=== PATIENT | male | born 1955 | race Caucasian/White ===

== ENCOUNTER 2024-03-24 11:01 | Outpatient (CLI) | payer MEDICARE, SELFPAY ==
--- NOTE | 2024-03-24 11:12 | USCV_ITS ---
Obinna Rodriguez Age: 68 Gender: M : 1955 Exam Date: 03/24/2024 11:34 Ordering Phys: Rusty Posey MD Technologist: CATRACHO Exam Location: [facility] – [place] Indication: HYPOTENSION BP: 143 / 75 HR: 61 Rhythm: Sinus Technical Quality: Adequate MEASUREMENTS (Male / Female) Normal Values 2D ECHO LV Diastolic Diameter PLAX 5.2 cm 4.2 - 5.9 / 3.9 - 5.3 cm IVS Diastolic Thickness 1.3 cm 0.6 - 1.0 / 0.6 - 0.9 cm IVS Systolic Thickness 2.4 cm LVPW Diastolic Thickness 1.8 cm 0.6 - 1.0 / 0.6 - 0.9 cm LVPW Systolic Thickness 2.5 cm LVOT Diameter 2.0 cm LV Ejection Fraction 2D Teich 68.3 % LV Ejection Fraction MOD 4C 60.4 % LV Ejection Fraction MOD 2C 64.1 % LV Ejection Fraction 2C AL 66.5 % LA Diameter 4.2 cm RA Systolic Volume 4C AL 23.0 ml RA Systolic Volume 4C MOD 21.2 ml LA Sys Volume AL 39.1 cm cubed LA Sys Volume Index AL 13.2 cm cubed/m squared Aorta at Sinotubular Diameter 2.1 cm IVC Diameter 1.6 cm M-MODE LA Ao Ratio MM 1.2 AV Cusp Separation MM 1.9 cm DOPPLER AV Peak Velocity 139.0 cm/s LVOT Peak Velocity 103.0 cm/s AV Area Cont Eq vti 2.5 cm squared AV Area Cont Eq pk 2.4 cm squared MV Peak Velocity 82.0 cm/s MV Area PHT 2.4 cm squared Mitral E to A Ratio 1.1 TR Peak Velocity 118.0 cm/s TR Peak Gradient 5.6 mmHg TR Mean Velocity 100.0 cm/s TR Mean Gradient 4.2 mmHg TR Velocity Time Integral 32.9 cm TV Peak E Velocity 53.0 cm/s PV Peak Velocity 98.0 cm/s RV Ejection Time 0.3 s FINDINGS Left Ventricle Normal left ventricular size, systolic function and wall thickness, with no regional wall motion abnormalities. Left ventricular ejection fraction is estimated at 55 %. Grade I/IV diastolic dysfunction (abnormal relaxation filling pattern), normal to mildly elevated filling pressures. Right Ventricle The right ventricle is normal in size and function. Right Atrium The right atrium is normal in size. Left Atrium The left atrium is normal in size. Mitral Valve Structurally normal mitral valve. Mild mitral annular calcification. No mitral valve stenosis. Trace mitral valve regurgitation. Aortic Valve Trace aortic valve regurgitation. Aortic valve sclerosis. No aortic valve stenosis. Tricuspid Valve Structurally normal tricuspid valve without significant stenosis or regurgitation. Pulmonic Valve Structurally normal pulmonic valve without significant stenosis. There is no pulmonic regurgitation. Pericardium Normal pericardium without effusion. Aorta Normal ascending aorta dimension. IVC The inferior vena cava appears normal. CONCLUSIONS Normal left ventricular size, systolic function and wall thickness, with no regional wall motion abnormalities. Left ventricular ejection fraction is estimated at 55 %. Grade I/IV diastolic dysfunction (abnormal relaxation filling pattern), normal to mildly elevated filling pressures. Structurally normal mitral valve. Mild mitral annular calcification. No mitral valve stenosis. Trace mitral valve regurgitation. There is no pericardial effusion. Right atrial pressure is around 5 mm of mercury. Catina Lou MD (Electronically Signed) Final Date: 25 March 2024 14:09 S
== END 2024-03-24 11:02 | disposition home or self-care (01) ==
LOC: RAD 11:06
PROVIDERS: Family Provider Family Medicine; Visit Provider Family Medicine
DX: I95.1 Orthostatic hypotension (principal); I34.81 Nonrheumatic mitral (valve) annulus calcification
CPT/HCPCS: 93306

== ENCOUNTER 2024-05-02 12:33 | Outpatient (CLI) | payer MEDICARE, SELFPAY ==
[2024-05-02 12:43] VITALS: BMI 41.8
--- NOTE | 2024-05-02 12:52 | ECG_ITS ---
[facility] Test Date: 2024-05-02 Pat Name: Obinna Rodriguez Department: Room: Gender: Male [employer]: : 1955 Requested By: Rusty Tovar Order Number: [id number] Mounika MD: Maddie Muñoz M.D. Interpretive Statements Lung unchanged pre/post procedure; Intraprocedure shortess of breath; Symptoms resoled by discharge PROCEDURE: At the baseline, the patient's blood pressure was 140/90 with a heart rate of 98. The baseline electrocardiogram showed normal sinus rhythm with normal ST-Ts. Poor R wave progression. The patient exercised for 5 minutes and 37 seconds on a standard Uriel protocol. Patient attained a maximum heart rate of 157 beats per minute(104% of the maximum predicted heart rate) with a blood pressure at the peak exercise of 163/70 mm Hg. The EKG at the peak exercise revealed no significant changes. Patient did not have any chest pain or any significant cardiac arrhythmias with the exercise During the recovery phase, there were no new changes. Blood pressure at the end of the recovery phase was 161/66 mm Hg with a heart rate of 100 per minute. CONCLUSION: 1. Normal EKG response to treadmill exercise 2. No exercise-induced chest pain or cardiac arrhythmia 3. Slightly exercise tolerance, attained a maximum of 7.0 METs Electronically Signed On 05-09-2024 07:04:58 NUT FORMER by Maddie Muñoz M.D. [email or web address]
[2024-05-02 13:19] VITALS: BP 154/82; PULSE 99
== END 2024-05-02 12:34 | disposition home or self-care (01) ==
LOC: CDL 12:33
PROVIDERS: PCP Family Medicine; Visit Provider Family Medicine
DX: R07.89 Other chest pain (principal)
CPT/HCPCS: 93017

== ENCOUNTER → 2024-05-13 13:34 | Outpatient (BNVA) | payer MEDICARE, SELFPAY | PROVIDERS: PCP Family Medicine; Referring Provider Family Medicine; Visit Provider Internal Medicine | DX: R07.9 Chest pain, unspecified (principal) | CPT/HCPCS: 93005; 99204 ==

== ENCOUNTER → 2024-05-16 12:42 | Outpatient (BNVA) | payer MEDICARE, SELFPAY | PROVIDERS: PCP Family Medicine; Visit Provider Internal Medicine | DX: R07.9 Chest pain, unspecified (principal); R00.2 Palpitations; I49.1 Atrial premature depolarization; I49.3 Ventricular premature depolarization; R00.1 Bradycardia, unspecified | CPT/HCPCS: 93229; 93242 ==

== ENCOUNTER → 2024-08-04 12:28 | Outpatient (BNVA) | payer MEDICARE, SELFPAY | PROVIDERS: PCP Family Medicine; Visit Provider Internal Medicine | DX: I10 Essential (primary) hypertension (principal); E78.00 Pure hypercholesterolemia, unspecified; R55 Syncope and collapse | CPT/HCPCS: 99213 ==